=== PATIENT | female | born 1945 ===

== ENCOUNTER 2018-08-31 15:59 | Observation (INO) ==
--- NOTE | 2018-08-31 16:34 | PDOC ---
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 The patient said that the last 3 days she started to have some cough, some wheezing and runny nose she went and saw Dr. Baig yesterday. she started her on Zithromax for that. After she saw her blood tests came back and it showed the potassium to be high at 5.9. she advised her not to take the spironolactone and increase fluid intake. She started to feel more short of breath last night so she came in today and saw Dr. Baig and had multiple tests including a d-dimer that was elevated. She denied orthopnea. Denied leg swelling. Chest x-ray done was negative but since she is still in renal failure and short of breath and tachycardic and tachypnic she was referred to the hospital. Past Medical History Medical History: 1. Hypertension. 2. History of male type baldness with increased testosterone and spironolactone. 3. History of hypothyroidism. 4. History of prostatitis Surgical History: 1. History of carpal tunnel surgery. 2. History of tendon r epair of the left leg Family History: Reviewed an Not Pertinent Past Social History: Does not smoke, rarely drinks, no drugs. Moved To this area 6 months ago. Tobacco Use: Never Smoker In the Past 12 Months, Have Used or Abuse Any of the Following Substance: None Alcohol Use: Rarely Medication / Allergies Home Medications: Home Medications Medication Instructions Recorded Confirmed Type betamethasone dipropionate 0.05 % 1 applic TOPICAL QDAY 05/25/18 08/31/18 History topical ointment clobetasol 0.05 % topical ointment 1 applic TOPICAL BID 05/25/18 08/31/18 History hydrocortisone 2.5 % topical cream 1 applic TOPICAL QID g 05/25/18 08/31/18 History levothyroxine 25 mcg capsule 25 mcg PO QDAY 05/25/18 08/31/18 History lisinopril 10 mg tablet 10 mg PO QDAY 05/25/18 08/31/18 History meloxicam 15 mg tablet 15 mg PO QDAY 05/25/18 08/31/18 History omeprazole 20 mg capsule,delayed 20 mg PO QDAY 05/25/18 08/31/18 History release spironolactone 50 mg tablet 50 mg PO BID tab 05/25/18 08/31/18 History thyroid (pork) 90 mg tablet 90 mg PO QDAY 05/25/18 08/31/18 History azithromycin 250 mg tablet See Rx Instructions PO .COMPLEX #6 08/30/18 08/31/18 Rx tab benzonatate 100 mg capsule 100 mg PO QID PRN #30 cap 08/30/18 08/31/18 Rx Allergies/Adverse Reactions: Allergies Allergy/AdvReac Type Severity Reaction Status Date / Time shellfish derived Allergy Intermediate Anaphylaxis Verified 08/31/18 18:36 cefuroxime Allergy Unknown Rash Verified 08/31/18 18:36 Review of Systems - Review of Systems All Systems: Reviewed & No Additional Complaints Except as Stated Exam - General General Appearance: No Acute Distress, Cooperative - Head Head Exam: Normal Inspection - Eye Eye Exam: POSITIVE: Normal Appearance - ENT ENT Exam: POSITIVE: Normal Exam - Neck Neck Exam: Normal Inspection - Respiratory Respiratory Exam: POSITIVE: Clear to Auscultation - Bilaterally - Cardiovascular Cardiovascular Exam: POSITIVE: RRR - GI/Abdominal GI/Abdominal Exam: POSITIVE: Normal Bowel Sounds, Non Tender, Non Distended, Soft, No Organomegaly - Rectal Rectal Exam: POSITIVE: Deferred - External Exam: POSITIVE: Deferred - Extremities Extremities Exam: POSITIVE: Normal Inspection Additional Extremities Exam Details: Varicose vein noted - Back Back Exam: POSITIVE: Normal Inspection - Neurological Neurological Exam: POSITIVE: Alert, Oriented x 3, CN II-XII Intact, No Facial Droop, Speech Intact / Clear - Psychiatric Psychiatric Exam: POSITIVE: Normal Affect Results - EKG Data -: EKG Interpreted by Me Rate: Tachycardia EKG Shows Normal: Sinus Rhythm - EKG Data EKG Interpretation: Other (EKG showed sinus tachycardia with occasional premature ventricular beat) - Imaging Status: Report Reviewed by Me (Chest X ray No acute cardiopulmonary disease.) Assessment and Plan - Patient Problems (1) Shortness of breath Current Visit: Yes Status: Acute Comment: Unclear etiology but with the elevated the d-dimer I think will put her on anticoagulant Lovenox, hydrate her and see if we can do a CT of the chest with contrast tomorrow Code(s): R06.02 - Shortness of breath (2) Hypertension Current Visit: No Status: Chronic Comment: I think we'll hold lisinopril and spironolactone for now Code(s): I10 - Essential (primary) hypertension (3) Acute renal failure Current Visit: Yes Status: Acute Comment: She is on spironolactone and lisinopril, will hold those. We'll hydrate her and repeat her kidney function tomorrow Code(s): N17.9 - Acute kidney failure, unspecified (4) Hypothyroid Current Visit: No Status: Chronic Comment: same med Code(s): E03.9 - Hypothyroidism, unspecified
[2018-08-31] MEDS ORDERED: LIDOCAINE W/ SODIUM BICARB 0.5 ML SYR SUBD PRN (17:15)
[2018-08-31] MEDS ORDERED: ONDANSETRON 4 MG/2 ML VIAL IVP PRN (17:15)
[2018-08-31] MEDS ORDERED: ACETAMINOPHEN 325 MG TABLET PO PRN (17:15)
[2018-08-31] MEDS ORDERED: CALCIUM CARBONATE 500 MG (TUMS) CHEWABLE TABLET PO PRN (17:15)
[2018-08-31] MEDS: Sodium Chloride 0.9% 1,000 ML PRIMARY IV SCH (19:30)
[2018-08-31] MEDS: ENOXAPARIN SODIUM 100 MG/1 ML SYRINGE SUBCUT SCH (19:30)
--- NOTE | 2018-08-31 20:24 | DI ---
EXAM: US Duplex Bilateral Lower Extremity Veins CLINICAL HISTORY: elevated d-dimer with shortness of breath TECHNIQUE: Real-time duplex ultrasound scan of the bilateral lower extremity veins integrating B-mode two-dimensional vascular structure, Doppler spectral analysis, color flow Doppler imaging and compression. COMPARISON: No relevant prior studies available. FINDINGS: Right deep veins: Unremarkable. Normal compression and normal response to augmentation. Right superficial veins: Unremarkable as visualized. Left deep veins: Unremarkable. Normal compression and normal response to augmentation. Left superficial veins: Unremarkable as visualized. Soft tissues: No acute findings. IMPRESSION: No evidence of deep venous thrombosis in bilateral lower extremities.
[2018-09-01] MEDS: Sodium Chloride 0.9% 1,000 ML PRIMARY IV SCH ×2 (03:54→10:23)
[2018-09-01 05:21] LABS: BLOOD UREA NITROGEN 45 mg/dL (7-22)
[2018-09-01 05:23] LABS: BASOPHILS # (AUTO) 0.02 10*3/UL; BASOPHILS % (AUTO) 0.2 % (0-1); EOSINOPHILS # (AUTO) 0.18 10*3/UL; EOSINOPHILS % (AUTO) 1.8 % (0-8); Hematocrit [HCT] 31.6 % (37.0-47.0); Hemoglobin [HGB] 10.9 g/dL (12.0-16.0); LYMPHOCYTES # (AUTO) 1.53 10*3/uL; MEAN CORPUSCULAR HEMOGLOBIN 33.9 PG (27-31); MEAN CORPUSCULAR HGB CONC 34.5 g/dL (33-37); MEAN CORPUSCULAR VOLUME 98.1 FL (81-99); MEAN PLATELET VOLUME 10.8 FL (7.4-12.2); MONOCYTES % (AUTO) 7.1 % (5-15); NEUTROPHILS # (AUTO) 7.38 10*3/UL; RED BLOOD COUNT 3.22 10^6/uL (4.20-5.40)
[2018-09-01 05:27] LABS: PLATELET MORPHOLOGY COMMENT NORMAL MORPHOLOGY (NORM); RBC MORPHOLOGY COMMENT NORMAL MORPHOLOGY (NORM); WBC MORPHOLOGY COMMENT NORMAL MORPHOLOGY (NORM)
[2018-09-01] MEDS: ENOXAPARIN SODIUM 100 MG/1 ML SYRINGE SUBCUT SCH (07:12)
[2018-09-01] MEDS: OMEPRAZOLE 20 MG CAPSULE PO SCH (07:12)
[2018-09-01] MEDS: THYROID PO SCH (07:12)
[2018-09-01] MEDS: LEVOTHYROXINE 25 MCG TABLET PO SCH (07:13)
--- NOTE | 2018-09-01 08:41 | DI ---
CT CTA Chest Non-Coronary WWO,09/01/2018 7:05 AM: Clinical History: Shortness of breath and elevated d-dimer Previous Exam: None at this facility. Findings: Multiple helically acquired CT images are obtained through the chest following intravenous administra tion of contrast. There is a large right pleural effusion. There is diffuse ascites within the abdomen. The upper abdomen is otherwise not well evaluated. Pulmonary arteries are within normal limits without filling defect or truncation. The aorta is unremarkable. The thyroid is not well evaluated. Skeletal structures demonstrate diffuse degenerative change. Impression: 1. No evidence of pulmonary embolism. 2. Right pleural effusion with some compressive atelectasis. 3. Diffuse abdominal ascites.
[2018-09-01] MEDS: BENZONATATE 100 MG CAPSULE PO PRN ×3 (09:14→20:21)
--- NOTE | 2018-09-01 09:46 | PDOC(PROG) ---
Date of Service: 09/01/18 Time of Service: 10:00 Interval History: Subjective Patient continued to feel short of breath when she walks. no significant cough. No new symptoms. No abdominal pain. I did ask her again about the onset of her shortness of breath and she said for 3 days. I did ask her if there is a change in the size of her abdomen and she said she noted that back 2 months ago. She did not mention that when she came in yesterday. She did say that she had some constipation for few days. She is denying abdominal pain. Objective : Data - Labs CBC and BMP: 09/01/18 04:05 09/01/18 04:05 Objective : Exam - General General Appearance: No Acute Distress, Cooperative - Head Head Exam: Normal Inspection - Eye Eye Exam: Normal Appearance - Neck Neck Exam: Normal Inspection - Respiratory Additional Respiratory Exam Details: Decreased breath sounds in the right lower base - Cardiovascular Cardiovascular Exam: RRR - GI/Abdominal GI/Abdominal Exam: Normal Bowel Sounds, Non Tender, Soft, No Organomegaly Additional GI/Abdominal Exam Details: Abdomen is distended. No tenderness present. - Rectal Rectal Exam: Deferred - External Exam: Deferred - Extremities Extremities Exam: Normal Inspection - Back Back Exam: Normal Inspection - Neurological Neurological Exam: Alert, Oriented x 3, CN II-XII Intact, No Facial Droop, Speech Intact / Clear, Moves All Extremities Equally - Psychiatric Psychiatric Exam: Normal Affect Assessment and Plan - Patient Problems (1) Shortness of breath Current Visit: Yes Status: Acute Comment: Initially when she came in she reported that the shortness of breath been going on for 3 days she did not report a change in the size of her abdomen. It's only on direct questioning today she mentioned it. The CT did not show evidence of PE. We were thinking that her symptoms are all acute , the shortness of breath that she reported as being going on only for few days and elevated d-dimer so we thought that she had PE however the CT did not show evidence of PE but did show evidence of right pleural effusion and ascites. The etiology of it is not clear. Whether there is an element of cirrhosis is not clear. Was against it is that her albumin and INR are normal. Since we gave her Lovenox will wait until tomorrow before ordering procedures. I did speak with Dr. Kelly and is willing to do the procedures including paracentesis and thoracocentesis and will send the fluid for analysis including cytology. Did order an ultrasound of her heart. Will order a CT of her abdomen also tomorrow. She never had a colonoscopy she said before. She has some mild anemia will send iron studies. The presence of the ascites and pleural effusion suggest symptoms are going on more than few days. Code(s): R06.02 - Shortness of breath (2) Hypertension Current Visit: No Status: Chronic Comment: Continue holding lisinopril and Aldactone for now. Code(s): I10 - Essential (primary) hypertension (3) Acute renal failure Current Visit: Yes Status: Acute Comment: Seem to be resolved. I Think we'll stop the fluid later on today. Code(s): N17.9 - Acute kidney failure, unspecified (4) Hypothyroid Current Visit: No Status: Chronic Comment: Same med Code(s): E03.9 - Hypothyroidism, unspecified (5) Ascites Current Visit: Yes Status: Acute Comment: Etiology unclear will order CT of the abdomen tomorrow and paracentesis tomorrow. Code(s): R18.8 - Other ascites
[2018-09-01] MEDS: DOCUSATE 100 MG CAPSULE PO PRN (20:22)
[2018-09-02 05:11] LABS: BASOPHILS # (AUTO) 0.02 10*3/UL; BASOPHILS % (AUTO) 0.2 % (0-1); EOSINOPHILS # (AUTO) 0.23 10*3/UL; EOSINOPHILS % (AUTO) 2.6 % (0-8); Hematocrit [HCT] 31.4 % (37.0-47.0); Hemoglobin [HGB] 10.2 g/dL (12.0-16.0); LYMPHOCYTES # (AUTO) 1.66 10*3/uL; MEAN CORPUSCULAR HEMOGLOBIN 32.1 PG (27-31); MEAN CORPUSCULAR HGB CONC 32.5 g/dL (33-37); MEAN CORPUSCULAR VOLUME 98.7 FL (81-99); MEAN PLATELET VOLUME 10.5 FL (7.4-12.2); MONOCYTES % (AUTO) 6.8 % (5-15); NEUTROPHILS # (AUTO) 6.31 10*3/UL; NEUTROPHILS % (AUTO) 71.3 % (50-80); RED BLOOD COUNT 3.18 10^6/uL (4.20-5.40)
[2018-09-02 05:29] LABS: BLOOD UREA NITROGEN 42 mg/dL (7-22); BUN/CREATININE RATIO 46.66 (6-20); PLATELET MORPHOLOGY COMMENT NORMAL MORPHOLOGY (NORM); RBC MORPHOLOGY COMMENT NORMAL MORPHOLOGY (NORM); SERUM ALBUMIN 3.5 g/dL (3.5-4.8); WBC MORPHOLOGY COMMENT NORMAL MORPHOLOGY (NORM)
[2018-09-02] MEDS: LEVOTHYROXINE 25 MCG TABLET PO SCH (05:32)
[2018-09-02] MEDS: BENZONATATE 100 MG CAPSULE PO PRN ×2 (06:03→20:11)
[2018-09-02] MEDS: THYROID PO SCH (06:04)
[2018-09-02] MEDS: OMEPRAZOLE 20 MG CAPSULE PO SCH (07:22)
--- NOTE | 2018-09-02 09:07 | DI ---
CT Abdomen/Pelvis W Contrast,09/02/2018 7:31 AM: Clinical History: Ascites and shortness of breath. Previous Exam: None at this facility. Findings: Multiple helically acquired CT images are obtained through the abdomen and pelvis following intraveno us demonstration of 75 cc of Isovue 300. There is a large amount of stones within the gallbladder. The lung bases are clear. There is massive ascites. The urinary bladder is decompressed. Multiple calcified uterine fibroids are seen. The liver, spleen and pancreas are unremarkable. Diffuse degenerative changes of the lumbar spine are noted. There is loss of intervertebral disc height at the L2/3, L3/4, L4/5 and L5/S1 levels. There are bilateral L5 pars defects with approximately 3 mm of anterolisthesis of L5 on S1. Lung bases demonstrate a right pleural effusion. Anterior abdominal wall and subcutaneous fat is unremarkable. The liver appears normal. The adrenals and kidneys are unremarkable except for some left renal parenc hymal calcifications. There is a simple cyst noted in the interpolar region the left kidney. Impression: 1. Massive ascites of unknown etiology. 2. Right pleural effusion. 3. Cholelithiasis.
--- NOTE | 2018-09-02 16:04 | PDOC(PROG) ---
Date of Service: 09/02/18 Time of Service: 15:30 Interval History: Subjective Patient was seen after the procedure. She had both thoraco-centesis and paracentesis she feels better shortness of breath is better. Denying pain except some mild discomfort at the site of the procedure. Objective : Data - Labs CBC and BMP: 09/02/18 04:43 09/02/18 04:43 Objective : Exam - General General Appearance: No Acute Distress, Cooperative - Head Head Exam: Normal Inspection - Eye Eye Exam: Normal Appearance - ENT ENT Exam: Normal Exam - Neck Neck Exam: Normal Inspection - Respiratory Additional Respiratory Exam Details: Decrease breath sound at the right lower base. - Cardiovascular Cardiovascular Exam: RRR, Tachycardia - GI/Abdominal GI/Abdominal Exam: Normal Bowel Sounds, Non Tender, Non Distended, Soft, No Organomegaly - Rectal Rectal Exam: Deferred - External Exam: Deferred - Extremities Extremities Exam: Normal Inspection - Back Back Exam: Normal Inspection - Neurological Neurological Exam: Alert, Oriented x 3, CN II-XII Intact, No Facial Droop, Speech Intact / Clear - Psychiatric Psychiatric Exam: Normal Affect Assessment and Plan - Patient Problems (1) Shortness of breath Current Visit: Yes Status: Acute Comment: This is secondary to the combination of right pleural effusion and ascites. Description of the ascites is bloody per my discussion with Dr. Kelly. I did relate that to her and her family this is suspicious for malignancy. We have to wait for the cytology. We'll watch overnight we will see her cell count if negative we'll discharge her home tomorrow and follow-up with Dr. Baig to find cytology results Code(s): R06.02 - Shortness of breath (2) Hypertension Current Visit: No Status: Chronic Comment: Blood pressure is acceptable continue holding her medications. Code(s): I10 - Essential (primary) hypertension (3) Acute renal failure Current Visit: Yes Status: Acute Comment: This is resolved Code(s): N17.9 - Acute kidney failure, unspecified (4) Hypothyroid Current Visit: No Status: Chronic Comment: Same meds Code(s): E03.9 - Hypothyroidism, unspecified (5) Ascites Current Visit: Yes Status: Acute Comment: We'll wait for the cytology analysis and the preliminary cell count. Likely home tomorrow. Code(s): R18.8 - Other ascites
[2018-09-02 16:31] LABS: WBC, BODY FLUID 1.18 10*3/uL; WBC, BODY FLUID 1.457 10*3/uL
[2018-09-02 16:32] LABS: TOTAL PROTEIN,BODY FLUID 4.6 g/dL
--- NOTE | 2018-09-02 17:07 | DI ---
Thorancentesis,09/02/2018 9:00 AM: Clinical History: Shortness of breath and right pleural effusion. Previous Exam: CTA chest performed August 04, 2018 Procedure: Risks, benefits and alternatives were explained to the patient and informed written consen t obtained. The right posterior chest wall was prepped and draped in usual sterile fashion and 1% lidocaine used for local anesthesia. A catheter was advanced over a trocar into the right pleural space. The catheter was advanced over th e trocar and a total of 475 cc of sero-sanguinous fluid removed from the pleural space. The patient t olerated the procedure well. Fluid was collected for laboratory analysis. Findings: Sonographic images demonstrate hyperechoic needle with the tip in the pleural space. Impression: Successful right thoracentesis. Pathology pending.
--- NOTE | 2018-09-02 17:23 | DI ---
US Abdominal Paracentesis,09/02/2018 9:00 AM: Clinical History: Ascites Previous Exam: CT abdomen pelvis performed September 02, 2018 Procedure: Risks, benefits and alternatives were splinted the patient and informed written consent ob tained. The patient was placed supine on the sonography table and the right lower quadrant prepped an d draped in usual sterile fashion. 1% lidocaine was used for local anesthesia. A catheter was placed over a trocar into the peritoneal space. 2450 cc of serous sanguinous fluid was removed from the peritoneum. The patient tolerated the procedure well and was sent back to the floor in good position. Samples were obtained for laboratory analysis. Findings: Images demonstrate hyperechoic needle passing into a fluid collection in the lower abdomen. Impression: Successful paracentesis. Cytology pending.
[2018-09-02] MEDS: Ertapenem Inj 1 GM in Sodium Chloride 0.9% 100 ML IV SCH (18:47)
[2018-09-02] MEDS: DOCUSATE 100 MG CAPSULE PO PRN (20:11)
[2018-09-03 05:26] LABS: BLOOD UREA NITROGEN 23 mg/dL (7-22); BUN/CREATININE RATIO 38.33 (6-20)
[2018-09-03] MEDS: LEVOTHYROXINE 25 MCG TABLET PO SCH (05:58)
[2018-09-03] MEDS: OMEPRAZOLE 20 MG CAPSULE PO SCH (05:59)
[2018-09-03] MEDS: THYROID PO SCH (05:59)
[2018-09-03 07:24] VITALS: RESP 16
[2018-09-03 12:15] LABS: HEP B CORE IGM ANTIBODY Negative (Negative); HEPATITIS B SURFACE AG Negative (Negative)
--- NOTE | 2018-09-03 12:31 | DCSUMMARY ---
Hospitalization Summary Admit Date: 08/31/2018 Discharge Date: 09/03/18 Hospital Course: Discharge diagnoses 1. Ascites, suspicious for malignancy 2. Right pleural effusion exudate 3. History of hypertension 4. History of male pattern baldness 5. History of hypothyroidism 6. Osteoarthritis 7. Inflammatory peritoneal fluid treated as SBP although likely inflammatory response to a tumor 8. Acute renal failure resolved 9. Hyperkalemia resolved Hospital course This is 73 years old female with medical history significant for history of hypertension, hypothyroidism, history of male pattern baldness spironolactone was sent to the hospital from a clinic because of shortness of breath. The patient said that the last 3 days before admission she started to have cough, some wheezing, runny nose she went to the clinic and saw Dr. Baig the day before admission she started her on Zithromax for that. After she saw Dr. Baig result came back and showed potassium to be as high as 5.9. The patient was instructed not to take Aldactone and to increase her fluid intake. She started to feel more short of breath the night before admission so she came in and saw Dr. Baig who ordered multiple tests including a d-dimer that was elevated, chest x-ray was negative she was referred here for admission. She was still in renal failure with creatinine of 1.4. She was also tachycardic and tachypneic. We were thinking in the direction that she may have a PE so we hydrated her and the next day her creatinine went down to 1.[address] of the chest which showed presence of ascites and a right pleural effusion. Because the suspicion was high for PE we elected to treat her empirically with Lovenox. We've DC'd her Lovenox after the CT showed no evidence of PE. After waiting for the effect of the Lovenox to dissipate she had a CT of the abdomen which showed massive ascites and she had paracentesis and thoracocentesis. The appearance of the fluid was bloody. Further analysis showed presence of white cells and high protein content in the pleural fluid suggesting this is an exudate Effusion. LDH was sent but I don't have the result. The protein content in the peritoneal fluid was also high. Glucose was low. Absolute neutrophil count in the peritoneal fluid was more than 250. We elected to treat empirically as SBP although we suspect that this is a inflammatory response to the tumor. Culture was sent. Cytology was also sent. We did do an echocardiogram but I still don't have the result. Clinical suspicion that this is a malignant ascites. Did explain our suspicion to the patient and her family. We discharged her home after she got 2 doses of IV antibiotic and will be discharge on 3 days of Cipro. I did speak with Dr. Baig so she knows about the plan. We DC'd her lisinopril and spironolactone as her blood pressure seem to be acceptable. Her kidney function improved. Potassium level also improved. I did explain to her and the family that the fluid may recur until we have a definite plan and she may end up needing to come back again and have another procedure for relief of symptoms. Discharge instruction Diet regular Activity as tolerated Medications Current Medication(s) Medication Instructions Recorded Confirmed Type omeprazole 20 mg capsule,delayed 20 mg PO QDAY 05/25/18 09/01/18 History release benzonatate 100 mg capsule 100 mg PO QID PRN #30 cap 08/30/18 09/01/18 Rx RX: Levothyroxine Sodium 25 mcg PO DAILY 09/01/18 09/01/18 History RX: Thyroid,Pork [[place] Thyroid] 15 mg PO DAILY 09/01/18 09/01/18 History RX: Thyroid,Pork [[place] Thyroid] 60 mg PO DAILY 09/01/18 09/01/18 History Ciprofloxacin HCl [Cipro] 500 mg PO BID #6 tab 09/03/18 Rx RX: Acetaminophen [Tylenol] 650 mg PO Q6H PRN tab 09/03/18 Rx RX: Docusate Sodium [Colace] 100 mg PO BID PRN cap 09/03/18 Rx Follow-up with Dr. Baig next week Condition at discharge was stable for discharge Exam - Vitals Vital Signs: Vital Signs Temperature 97.1 F Temperature Source Temporal Artery Scan Pulse Rate [Apical] 110 Pulse Rate [Pulse Oximeter 98 Right] Pulse Rate 108 Respiratory Rate 16 Blood Pressure [Right Arm] 104/63 Pulse Ox 91 Oxygen Flow Rate 1 Oxygen Delivery Method Nasal Cannula Height 5 ft 7 in Weight 233 lb 6.4 oz - General General Appearance: No Acute Distress, Cooperative - Head Head Exam: Normal Inspection - Eye Eye Exam: POSITIVE: Normal Appearance - ENT ENT Exam: POSITIVE: Normal Exam - Neck Neck Exam: Normal Inspection - Respiratory Additional Respiratory Exam Details: Decreased breath sounds at the right lung base otherwise clear - Cardiovascular Cardiovascular Exam: POSITIVE: RRR - GI/Abdominal GI/Abdominal Exam: POSITIVE: Normal Bowel Sounds, Non Distended, Soft, No Organomegaly Additional GI/Abdominal Exam Details: There is no tenderness, abdominal distention is less than before. - Rectal Rectal Exam: POSITIVE: Deferred - External Exam: POSITIVE: Deferred Exam: POSITIVE: Deferred - Extremities Extremities Exam: POSITIVE: Normal Inspection - Back Back Exam: POSITIVE: Normal Inspection - Neurological Neurological Exam: POSITIVE: Alert, Oriented x 3, CN II-XII Intact, No Facial Droop, Speech Intact / Clear, Moves All Extremities Equally - Psychiatric Psychiatric Exam: POSITIVE: Normal Affect - Integumentary Integumentary Exam: POSITIVE: Normal Color Patient Problems - Patient Problem List (1) Shortness of breath Current Visit: Yes Status: Acute Code(s): R06.02 - Shortness of breath Category: Medical (2) Hypertension Current Visit: No Status: Chronic Code(s): I10 - Essential (primary) hypertension Category: Medical (3) Acute renal failure Current Visit: Yes Status: Acute Code(s): N17.9 - Acute kidney failure, unspecified Category: Medical (4) Hypothyroid Current Visit: No Status: Chronic Code(s): E03.9 - Hypothyroidism, unspecified Category: Medical (5) Ascites Current Visit: Yes Status: Acute Code(s): R18.8 - Other ascites Category: Medical
[2018-09-03 15:52] VITALS: BP 114/74; TEMP 97.9; O2SAT 93
[2018-09-03] MEDS: Ertapenem Inj 1 GM in Sodium Chloride 0.9% 100 ML IV SCH (15:55)
[2018-09-03 17:13] LABS: HEPATITIS A IGM Negative (Negative)
== END 2018-09-03 17:03 | disposition home or self-care (01) ==
LOC: MED/SURG
PROVIDERS: ADMIT Internal Medicine; ATTEND Internal Medicine